=== PATIENT | male | born 1995 | race Hispanic/Latino ===

== ENCOUNTER 2022-08-26 07:42 | Emergency (ER) | payer OTHER, SELFPAY ==
[2022-08-26] MEDS ORDERED: Ketorolac Tromethamine 30 MG/ML VIAL ONE (08:33)
[2022-08-26] MEDS ORDERED: Acetaminophen 500 MG TAB ONE (08:33)
[2022-08-26] MEDS ORDERED: methylPREDNISolone Sod Succ/PF 125 MG/2 ML VIAL ONE ×3 (08:55→08:57)
[2022-08-26] MEDS ORDERED: methylPREDNISolone Sod Succ 1,000 MG in Sodium Chloride 0.9% 100 ML IVPB SCH (09:30)
[2022-08-26 09:32] LABS: SARS-CoV-2 NAA Rapid Test Not Detected (NotDetected)
== END 2022-08-26 10:50 | disposition home or self-care (01) ==
LOC: ERS 07:42
DX: R53.1 Weakness (principal); Z20.822 Contact with and (suspected) exposure to COVID-19
CPT/HCPCS: 96372; 96374; J1885; J2930; J3490